=== PATIENT | female | born 1965 | race Caucasian/White ===

== ENCOUNTER 2025-08-03 23:21 | Emergency (ER) | payer SELFPAY ==
[~2025-08-03] VITALS: Ht 144.8 cm; Wt 81.6 kg
[2025-08-04 00:03] VITALS: O2SAT 99
[2025-08-04 01:20] LABS: HEMATOCRIT. 42.6 % (36.0-48.0); HEMOGLOBIN. 13.8 g/dL (12.0-16.0); MEAN PLATELET VOLUME 8.2 fl (7.4-10.4); PLATELET 273 x1000/uL (130-400); RED BLOOD CELL COUNT 4.89 mill/uL (4.2-5.4); RED CELL DISTRIBUTION WIDTH 14.2 % (11.6-14.6)
[2025-08-04 01:30] LABS: CREATININE 0.6 mg/dL (0.6-1.0)
[2025-08-04 01:31] LABS: PROTEIN TOTAL 7.5 g/dL (6.0-8.3); UREA NITROGEN BLOOD 13 mg/dL (9-23)
[2025-08-04 01:32] LABS: ASPARTATE AMINOTRANSFERASE 41 IU/L (<34)
[2025-08-04 01:33] LABS: BILIRUBIN DIRECT < 0.1 mg/dL (<=3.0); BILIRUBIN TOTAL 0.3 mg/dL (0.1-1.0)
[2025-08-04 01:59] LABS: EOSINOPHILS % MANUAL 1.0 % (0.0-5.0); LYMPHOCYTES % MANUAL 28.0 % (20.0-60.0); MONOCYTES % MANUAL 9.0 % (2.0-8.0); NEUTROPHILS % MANUAL 62.0 % (45.0-75.0); PLATELET ESTIMATE NORMAL
[2025-08-04] MEDS: ACETAMINOPHEN 325MG TABLET PO ONE (02:52)
[2025-08-04] MEDS ORDERED: FAMO20TA8 MT (03:25)
[2025-08-04] MEDS ORDERED: ACET-2708 PO (03:25)
[2025-08-04] MEDS ORDERED: CYCL5TAB3 PO (03:25)
[2025-08-04 03:30] VITALS: BP 150/81; PULSE 76; RESP 18; TEMP 37; O2SAT 99
== END 2025-08-04 03:40 | disposition home or self-care (01) ==
LOC: ER 23:21
DX: M54.9 Dorsalgia, unspecified (principal); K29.70 Gastritis, unspecified, without bleeding
CPT/HCPCS: 36415; 71045; 80048; 80076; 85025; 99284